=== PATIENT | male | born 1935 | race Caucasian/White ===

== ENCOUNTER 2016-12-24 17:23 | Inpatient (IN) | payer MEDICARE ==
[~2016-12-24] VITALS: Ht 185.4 cm; Wt 81.6 kg
[~2016-12-24 17:23] MED LIST: ADVAIR 250/501 DISK INH; ADVAIR 500/501 DISK INH; ALBUTEROL0.63 MG/3 INH; ALBUTEROL2.5 MG/3 M INH; BAYER CHEWABLE81 MG PO; BETAPACE 120 M120 MG PO; HYDROCODON-ACE1 EAC6 PO; LEVAQUIN500 MG PO; LEXAPRO10 MG PO; LEXAPRO20 MG PO; MEDROL DOSE PACK4 MG PO; PROAIR HFA8.5 GM INH; SINGULAIR10 MG PO; VITAMIN B-12500 MC1 PO; ZOCOR10 MG PO
[2016-12-24 18:29] LABS: BASOPHILS 0 % (0.0-2.0); EOSINOPHILS 0.4 % (0-7); HEMATOCRIT 31.9 % (42.0-54.0); HEMOGLOBIN 10.1 g/dL (13.5-17.5); LYMPHOCYTES 20.3 % (15-50); MCHC 31.7 g/dL (31.0-37.0); MCV 100.9 fL (80.0-100.0); MEAN PLATELET VOLUME 9.6 fL (7.4-10.4); MONOCYTES 20.9 % (2-11); NEUTROPHILS 57.4 % (40-80); PLATELET COUNT 181 10x3/uL (130-400); RBC 3.16 10x6/uL (4.20-6.10); RDW 15.7 % (11.5-14.5); WBC 5.2 10x3/uL (4.8-10.8)
[2016-12-24 18:44] LABS: ALKALINE PHOSPHATASE 24 U/L (46-116); BILIRUBIN - TOTAL 0.44 mg/dL (0.2-1.3); CALC OSMOLALITY 284 mosm/kg (275-300); CALCIUM 8.8 mg/dL (8.5-10.1); CARBON DIOXIDE 32.6 mmol/L (21.0-32.0); CHLORIDE - SERUM 102 mmol/L (98-107); POTASSIUM - SERUM 3.6 mmol/L (3.5-5.1); PROTEIN - SERUM 6.6 g/dL (6.4-8.2); SODIUM 140 mmol/L (136-145); UREA NITROGEN 30 mg/dL (7-18); eGFR NON AFRICAN AMERICAN 76 mL/min (90-120)
[2016-12-24 18:47] LABS: GLUCOSE 92 mg/dL (74-106)
[2016-12-24 19:07] LABS: ALT (SGPT) 15 U/L (10-68)
[2016-12-24 21:03] LABS: APPEARANCE CLEAR (CLEAR); COLOR YELLOW (YELLOW); GLUCOSE NEGATIVE (NEGATIVE); KETONE NEGATIVE (NEGATIVE); LEUKOCYTE ESTERASE NEGATIVE (NEGATIVE); NITRITE NEGATIVE (NEGATIVE); PROTEIN NEGATIVE (NEGATIVE); SPECIFIC GRAVITY 1.015 (1.005-1.020)
[2016-12-24 21:04] LABS: BILIRUBIN NEGATIVE (NEGATIVE); UROBILINOGEN NORMAL (NORMAL)
[2016-12-24 23:37] VITALS: BP 120/24; BMI 23.8
--- NOTE | 2016-12-24 23:37 | NUR ---
RECIEVED PT FROM ER, ASSESSMENT COMPLETED, NO ACUTE DISTRESS NOTED, URINAL AND EXTRA BLANKET PROVIDED, ORIENTED TO ROOM AND CALL LIGHT, DENIES PAIN OR NEEDS AT THIS TIME, FALL PRECAUTIONS IN PLACE, CL IN REACH, WILL MONITOR
[2016-12-25] VITALS: BP 120/54
--- NOTE | 2016-12-25 01:38 | NUR ---
RESTING WITH EYES CLOSED, RESP WITH EASE, NO DISTRESS NOTED, SAFETY PRECAUTIONS IN PLACE, CL IN REACH
[2016-12-25 04:00] VITALS: BP 108/54
--- NOTE | 2016-12-25 07:00 | NUR ---
PT REC'D FROM YESENIA VAZQUEZ. RESTING IN BED WITH EYES CLOSED. NO SIGNS OF DISTRESS. RESP EVEN AND UNLABORED. BED LOW, CALL LIGHT IN REACH, CPOC.
[2016-12-25 08:41] VITALS: BP 114/51
--- NOTE | 2016-12-25 10:55 | NUR ---
PT RESTING IN BED WITH EYES CLOSED. NO SIGNS OF DISTERSS. BED LOW, CALL LIGHT IN REACH, CPOC.
[2016-12-25 11:30] VITALS: Ht 185.4 cm; Wt 81.6 kg
--- NOTE | 2016-12-25 11:49 | NUR ---
PT WITHOUT DISTRESS.LYING IN BED.ISOLATION MAINTAINED.
[2016-12-25 12:30] VITALS: BP 109/48
[2016-12-25 16:05] VITALS: BP 117/50
--- NOTE | 2016-12-25 19:30 | NUR ---
ASSESSMENT COMPLETED, NO ACUTE DISTRESS NOTED, SCD'S REPLACED, BED ALARM ON, DENIES PAIN OR NEEDS, SR'S UP, CL IN REACH, WILL MONITOR
[2016-12-25 20:00] VITALS: BP 115/49
--- NOTE | 2016-12-25 21:31 | NUR ---
MEDS GIVEN PER MAR, VIPIN WELL, DENIES NEEDS, CL IN REACH
--- NOTE | 2016-12-25 23:39 | NUR ---
RESTING WITH EYES CLOSED, RESP WITH EASE, NO DISTRESS NOTED, SR'S UP , CL IN REACH
[2016-12-26 04:00] VITALS: BP 116/49
[2016-12-26 04:47] LABS: BASOPHILS 0.2 % (0.0-2.0); EOSINOPHILS 0.4 % (0-7); HEMATOCRIT 30.7 % (42.0-54.0); HEMOGLOBIN 9.6 g/dL (13.5-17.5); IMMATURE GRANULOCYTES 0.2 % (0-5); LYMPHOCYTES 16.9 % (15-50); MCH 31.4 pg (26.0-34.0); MCHC 31.3 g/dL (31.0-37.0); MCV 100.3 fL (80.0-100.0); MEAN PLATELET VOLUME 9.3 fL (7.4-10.4); MONOCYTES 15.9 % (2-11); NEUTROPHILS 66.4 % (40-80); PLATELET COUNT 158 10x3/uL (130-400); RBC 3.06 10x6/uL (4.20-6.10); RDW 15.5 % (11.5-14.5); WBC 5.3 10x3/uL (4.8-10.8)
[2016-12-26 05:00] LABS: CALC OSMOLALITY 286 mosm/kg (275-300); CALCIUM 8.4 mg/dL (8.5-10.1); CARBON DIOXIDE 31.4 mmol/L (21.0-32.0); CHLORIDE - SERUM 103 mmol/L (98-107); CREATININE - SERUM 0.9 mg/dL (0.6-1.3); GLUCOSE 95 mg/dL (74-106); POTASSIUM - SERUM 3.5 mmol/L (3.5-5.1); SODIUM 141 mmol/L (136-145); UREA NITROGEN 28 mg/dL (7-18); eGFR NON AFRICAN AMERICAN 86 mL/min (90-120)
[2016-12-26 08:19] VITALS: BP 121/45
--- NOTE | 2016-12-26 11:31 | HP ---
PATIENT: GERI LOOMIS MEDICAL RECORD: [id number] ACCOUNT: [id number] LOCATION:[id number] : 36 ADMISSION DATE: 12/24/16 HISTORY AND PHYSICAL EXAMINATION Admission History and Physical HISTORY OF PRESENT ILLNESS: A 81-year-old male, who presented to the Emergency Room with extreme weakness, unable to get out of bed, worsening shortness of breath and he is undergoing chemo for lung cancer. CURRENT MEDICATIONS: Listed as Advair, simvastatin, ProAir, albuterol and the chemotherapy, which has been held the last couple of weeks due to progressive weakness. PAST MEDICAL HISTORY: Significant for COPD, lung cancer, history of prostate cancer. FAMILY HISTORY: Significant for cardiovascular disease ____ diabetes and sibling with cancer. SOCIAL HISTORY: ____ of tobacco. REVIEW OF SYSTEMS: Significant for the progressive weakness, now nonambulatory. HEENT: No cephalgia, visual changes, tinnitus, epistaxis or dysphagia. CARDIOVASCULAR: Denies chest pain, denies palpitations. PULMONARY: Denies hemoptysis, denies night sweats. History of lung cancer, undergoing chemo, history of COPD, nicotine dependence. GASTROINTESTINAL: Denies hematemesis, hematochezia or melena. GENITOURINARY: Denies dysuria. MUSCULOSKELETAL: No acute changes other than the progressive weakness, now nonambulatory. PHYSICAL EXAMINATION: VITAL SIGNS: Temperature 98.2, blood pressure 114/51, heart rate 76, respirations 16, O2 sats 92% on 2 liters via nasal cannula. HEENT: Head is normocephalic and atraumatic. Eyes: Pupils are equally round and reactive to light and accommodation. Extraocular muscles intact. Conjunctiva was not injected. Ears: Canals patent, TMs are intact. Nose: Nares patent without drainage. Throat: No erythema, no exudates. NECK: Supple. No lymphadenopathy, no JVD. HEART: Regular rate and rhythm. LUNGS: Clear to auscultation, mildly prolonged expiratory phase. Breathing is nonlabored with supplemental O2. ABDOMEN: Soft and nontender. Bowel sounds in all 4 quadrants. EXTREMITIES: Present times 4, no edema. NEUROLOGIC: Intact. SKIN: Warm and dry. No rash. ASSESSMENT AND PLAN: 1. Lung cancer, unknown treatment regimen. We will consult his oncologist, Dr. Maurer 2. General malaise and weakness. Case management for placement options and code status. 3. Nutrition consult. Supportive care. HISTORY AND PHYSICAL [id number] GERI LOOMIS 4. Chronic obstructive pulmonary disease. Resume home medications. TRANSINT:[id number] Voice Confirmation ID: [id number] DOCUMENT ID: [id number] SANTOS ESPITIA DO at 1131 CC: [id number] DICTATION DATE: 12/25/16 1223 BAND BUILDER: 12/25/16 1241 ADM IN [place] [id number] [place] [address]
[2016-12-26 11:53] VITALS: BP 115/45
--- NOTE | 2016-12-26 12:13 | NUR ---
RESTING QUIETLY WITH EYES CLOSED. NO C/O AT THIS TIME. DENIES NEEDS. LUNGS HAVE CRACKLES THROUGHOUT LUNG GRIER. DENIES COUGH. IV TO LEFT FOREARM IS PATENT WITHOUT REDNESS AT INSERTION SITE.
[2016-12-26 15:36] VITALS: BP 121/48
--- NOTE | 2016-12-26 17:06 | NUR ---
PT TAKEN FOR CT SCAN. UNHOOKED FROM IV.
[2016-12-26 20:00] VITALS: BP 121/54
--- NOTE | 2016-12-26 21:20 | NUR ---
MEDS GIVEN PER MAR, VIPIN WELL, DENIES NEEDS, BED ALARM ON, CL IN REACH
[2016-12-27] VITALS: BP 117/53
--- NOTE | 2016-12-27 01:20 | NUR ---
ASSITED PT IN REPOSITIONING IN BED, DENIES FURTHER NEEDS, FALL PRECAUTIONS IN PLACE, CL IN REACH
[2016-12-27 05:27] LABS: BASOPHILS 0.1 % (0.0-2.0); EOSINOPHILS 0.3 % (0-7); HEMATOCRIT 29.9 % (42.0-54.0); HEMOGLOBIN 9.5 g/dL (13.5-17.5); IMMATURE GRANULOCYTES 0.4 % (0-5); LYMPHOCYTES 14.2 % (15-50); MCH 31.7 pg (26.0-34.0); MCHC 31.8 g/dL (31.0-37.0); MCV 99.7 fL (80.0-100.0); MEAN PLATELET VOLUME 9.4 fL (7.4-10.4); MONOCYTES 17.8 % (2-11); NEUTROPHILS 67.2 % (40-80); PLATELET COUNT 172 10x3/uL (130-400); RDW 15.6 % (11.5-14.5)
[2016-12-27 05:31] LABS: WBC 7.1 10x3/uL (4.8-10.8)
[2016-12-27 06:10] LABS: ALBUMIN 2.6 g/dL (3.4-5.0); ALKALINE PHOSPHATASE 20 U/L (46-116); ALT (SGPT) 12 U/L (10-68); BILIRUBIN - TOTAL 0.64 mg/dL (0.2-1.3); CALC OSMOLALITY 282 mosm/kg (275-300); CALCIUM 8.8 mg/dL (8.5-10.1); CARBON DIOXIDE 31.2 mmol/L (21.0-32.0); CHLORIDE - SERUM 101 mmol/L (98-107); CREATININE - SERUM 0.9 mg/dL (0.6-1.3); GLUCOSE 97 mg/dL (74-106); MAGNESIUM - SERUM 1.4 mg/dL (1.8-2.4); PHOSPHOROUS 2.9 mg/dL (2.5-4.9); POTASSIUM - SERUM 3.6 mmol/L (3.5-5.1); PROTEIN - SERUM 6.2 g/dL (6.4-8.2); SODIUM 140 mmol/L (136-145); UREA NITROGEN 24 mg/dL (7-18); eGFR NON AFRICAN AMERICAN 86 mL/min (90-120)
[2016-12-27 08:06] VITALS: BP 119/68
[2016-12-27 11:21] VITALS: BP 127/65
--- NOTE | 2016-12-27 14:39 | NUR ---
NUTRITION MONITORING & EVAL CHART REVIEWED, PT VISIT. TOLERATING REG DIET, ONLY ~ 25% INTAKE LUNCH. VERY LITTLE INTAKE ENSURE. PT MAY BENEFIT FROM APPETITE STIMULANT. RD FOLLOWING
--- NOTE | 2016-12-27 14:48 | NUR ---
Patient Name: GERI LOOMIS Admission Status: ER Accout number: [id number] Admission Date: 12-24-2016 : 1935 Admission Diagnosis: Attending: SUZANNE Current LOS: 3 Anticipated DC Date: Planned Disposition: Hospice Medical Facility Primary Insurance: [employer] [facility] Discharge Planning Comments: PATIENTS NURSE NOTIFIED CM REGARDING PATIENTS HOSPICE EVALUATION. PATIENTS DOCTORS OFFICE PUT REFERRAL IN FOR A HOSPICE CONSULT. FAMILY WAS NOT IN ROOM AT THE TIME THE NURSE NOTIFIED CM. CM RECIEVED A CALL FROM [facility] AND THEY ARE MEETING FAMILY HERE TODAY. CM WILL CONTINUE TO FOLLOW PATIENT WITH D/C NEEDS AND PLANS. PCP DR. LINTON [facility] ([place]) [phone] Streaming Media Specialist: Desiree Mcdowell
[2016-12-27 15:20] VITALS: BP 124/76
[2016-12-27] MEDS ORDERED: ALBUTEROL1.25 MG/3 INH (15:49)
[2016-12-27 19:00] VITALS: BP 105/48
--- NOTE | 2016-12-27 20:44 | NUR ---
REPORT GIVEN TO HOSPICE JONATHAN YBARRARN, DTR EMILY OLMSTEAD, GENE AT [facility] CONTACTED FOR TRANSPORT, PT TO BE ADMITTED TO ROOM 557
--- NOTE | 2016-12-27 21:53 | NUR ---
ROUTINE MEDS GIVEN PER VIPIN ALLEN WELL, FAMILY AT BEDSIDE
[2016-12-28 09:17] LABS: FOLATE (FOLIC ACID) - SERUM 16.8 ng/mL (>3.0)
== END 2016-12-27 22:30 | disposition home health service (06) | DRG 948 ==
LOC: D.ER 17:23 → D.MS 21:39
PROVIDERS: Family Medicine; Internal Medicine Medical Oncology; ADMIT Family Medicine
DX: R53.1 Weakness (principal); C34.90 Malignant neoplasm of unspecified part of unspecified bronchus or lung; C79.31 Secondary malignant neoplasm of brain; R53.81 Other malaise; J44.9 Chronic obstructive pulmonary disease, unspecified; D63.0 Anemia in neoplastic disease; F17.200 Nicotine dependence, unspecified, uncomplicated